=== PATIENT | female | born 1940 | race Caucasian/White ===

== ENCOUNTER → 2018-12-29 | Outpatient (CLI) | payer MEDICARE ==
[~2018-12-29] MED LIST: CLONIDINE; Z.0.HYDROCHLOROTHIA2 PO; Z.0.TEKTURNA300 MG PO; [UNRECOGNIZED DRUG - OTHER] PO
--- NOTE | 2018-12-29 10:28 | Diagnostic Imaging Report ---
EXAM: US ABDOMEN COMPLETE DATE: 12/29/2018 8:28 AM INDICATION: Nausea COMPARISON: None TECHNIQUE: Transverse and longitudinal hardy scale and color doppler sonographic images of the upper abdomen were obtained. FINDINGS: There is no evidence of fluid or masses seen in the area of clinical concern in the right lower quadrant. LIVER 12.8 cm in the right midclavicular line. Normal echogenicity of the liver with normal contour, no masses. SPLEEN 7.9 cm in maximum diameter. Normal echogenicity, no masses. GALLBLADDER 1.9 cm gallstone in the gallbladder. No gallbladder distention, wall thickening, or pericholecystic fluid. Negative sonographic Rincon's sign. Gallbladder wall measures 2 mm BILE DUCTS No intra nor extra-hepatic biliary dilation. Common bile duct measures 4 mm PANCREAS: Visualized portions are normal. RIGHT KIDNEY: 10.0 cm Echogenicity: Normal Collecting System: No hydronephrosis Stones: None Cyst/Mass: 3.3 x 2.5 x 3.5 cm anechoic upper pole simple cyst. LEFT KIDNEY: 10.0 cm Echogenicity: Normal Collecting System: No hydronephrosis Stones: None Cyst/Mass: None VESSELS: Aorta: Visualized portions are within normal size limits Inferior Vena Cava: Visualized portions are normal Main Portal Vein: 1.0 cm, normal size with hepatopetal flow. FREE FLUID: None IMPRESSION: Cholelithiasis without sonographic evidence of cholecystitis. Right upper pole simple renal cyst. Signed by: Zack Elliott MD on 12/29/2018 10:24 AM
== END ==
LOC: US 08:18
PROVIDERS: ATTEND Family Medicine
DX: R11.0 Nausea (principal)
CPT/HCPCS: 76700